=== PATIENT | female | born 1955 | race Caucasian/White ===

== ENCOUNTER 2022-07-25 10:15 | Outpatient (CLI) | payer MEDICARE, SELFPAY | END 2022-07-25 10:16 | disposition home or self-care (01) | LOC: NFLDREF 10:17 | PROVIDERS: PCP Family Medicine; Visit Provider Family Medicine | DX: R30.0 Dysuria (principal) | CPT/HCPCS: 87086 ==

== ENCOUNTER 2023-01-04 08:43 | Outpatient (CLI) | payer MEDICARE, SELFPAY | END 2023-01-04 08:44 | disposition home or self-care (01) | PROVIDERS: PCP Family Medicine; Visit Provider Nurse Practitioner Family | DX: I10 Essential (primary) hypertension (principal); E78.5 Hyperlipidemia, unspecified; E55.9 Vitamin D deficiency, unspecified | CPT/HCPCS: 80053; 80061 ==

== ENCOUNTER 2023-05-29 10:02 | Outpatient (CLI) | payer MEDICARE, SELFPAY ==
--- NOTE | 2023-05-29 10:15 | CRLHL7_ITS ---
For Patients: As a result of the Century Cures Act, medical imaging exams and procedure reports are released immediately into your electronic medical record. You may view this report before your referring provider. If you have questions, please contact your health care provider. BILATERAL SCREENING MAMMOGRAM WITH COMPUTER-AIDED DETECTION AND TOMOSYNTHESIS TECHNIQUE: CC and MLO views were obtained. These mammographic images have been obtained using full-field digital technique. These mammographic images were interpreted with the benefit of computer-aided detection. Breast Tomosynthesis was used in this interpretation. COMPARISON FILM: 10/25/21, 05/19/19, 02/12/18. FINDINGS: There are scattered areas of fibroglandular density IMPRESSION: There is no radiographic evidence for malignancy. ASSESSMENT: BI-RADS Category 1: Negative RECOMMENDATION: Routine screening mammogram in 1 year. A lay language report of this examination will be provided to the patient. Florentin Banuelos M.D. Diagnostic Radiologist [email or web address] NEMO/Dictated by: Florentin Banuelos MD @ 05/29/2023 11:59:00 AM (Electronically Signed)
== END 2023-05-29 10:03 | disposition home or self-care (01) ==
LOC: MAMMO 10:04
PROVIDERS: PCP Family Medicine; Visit Provider Nurse Practitioner Family
DX: Z12.31 Encounter for screening mammogram for malignant neoplasm of breast (principal)
CPT/HCPCS: 77063; 77067

== ENCOUNTER 2024-04-10 10:45 | Outpatient (CLI) | payer MEDICARE, SELFPAY ==
--- OUTSIDE RECORDS SUMMARY | 2024-04-10 10:48 | XMS_ITS | Clinical Summary ---
Author Organization [facility] Address [place], [place] [address] Care Team Providers Care Teacher Physically Impaired Name Role Phone Pcp, No Primary Care Provider Unavailabl Florentin Curry MD Unavailable Unavailab le Allergies Active Allergy Reactions Criticality Noted Date Comments Sulfa (Sulfonamide Antibiotics) Edema,Fever 01/2009 Sulfa (Sulfonamide Antibiotics) Rash 11/2019 Medications Medication Sig Dispensed Refills Start Date End Date Status potassium chloride (Klor-Con M20) 20 mEq Extended-Release tablet Take 1 Tablet (20 mEq) by mouth once daily with a meal. 0 02/01/2022 Active atorvastatin (LIPITOR) 20 mg tablet Take 1 Tablet (20 mg) by mouth once daily. 0 02/01/2022 Active aspirin (ECOTRIN) 81 mg enteric coated tablet Take 1 Tablet (81 mg) by mouth once daily with a meal. 0 02/01/2022 Active amLODIPine (NORVASC) 2.5 mg tablet Take 1 Tablet (2.5 mg) by mouth once daily. 0 02/01/2022 Active chlorthalidone (HYGROTON) 25 mg tablet Take 1 Tablet (25 mg) by mouth once daily. 0 02/01/2022 Active acyclovir (ZOVIRAX) 400 mg tablet Take 400 mg by mouth in the morning and 400 mg in the evening. 12/11/2021 Active Active Problems No known active problems Social History Tobacco Use Types Packs/Day Years Used Date Smoking Tobacco: Former Smokeless Tobacco: Never Alcohol Use Standard Drinks/Week Comments Yes 0 (1 standard drink = 0.6 oz pur e alcohol) occas PHQ-2 Answer Date Recorded PHQ-2 TOTAL SCORE 0 02/01/2022 Social Connections Answer Date Recorded Frequency of Communication with Friends and Fami ly Not on file 06/18/2021 Financial Resource Strain Answer Date R ecorded Difficulty of Paying Living Expenses Not on file 06/18/2021 Difficulty of Paying Living Expenses Not on file 06/18/2021 Sex and Gender Information Value Date Recorded Sex Assigned at Not on file Gender Identity Not on file Sexual Orientation Not on file Obstetrics History Last Filed Vital Signs Vital Sign Reading Time Taken Comments Blood Pressure 150/82 02/01/2022 2:16 PM CDT Pulse 68 02/01/2022 2:16 PM CDT Temperature 37.3 ??C (99.1 ??F) 02/01/2022 2:16 PM CD T Respiratory Rate - - Oxygen Saturation 96% 09/08/2009 2:21 PM CDT Inhaled Oxygen Concentration - - Weight 79.4 kg (175 lb) 02/01/2022 2:16 PM CDT Height 167.6 cm (5' 6) 02/01/2022 2:16 PM CDT Body Mass Index 28.25 02/01/2022 2:16 PM CDT Plan of Treatment Health Maintenance Due Date Last Done Comments Tdap 1966 Hepatitis C screening for ag e 18-79 1973 Tetanus booster 1975 Colonoscopy through age 75 01/18/2000 Lipids for age 45-75 01/18/2000 Zoster (shingles) series for age 50+ (1 of 2) 2005 Mammogram for age 45-75 08/12/2014 08/12/2013 DEXA/DXA scan for age 65+ 01/18/2020 Medicare Wellness for age 65+ 01/18/2020 Pneumococcal series for age 65+ (1 of 1 - PCV) 01/18/2020 BMI (ht and wt on same day) for age 18+ 02/01/2023 02/01/2022 Depression screening for age 12+ 02/01/2023 02/02/20 22 COVID-19 vaccine series ( season) 2024 10/28/2021, 04/18/2021, 09/15/2020, Additional history exists Influenza for age 65+ 02/17/2024 Procedures Procedure Name Priority Date/Time Associated Diagnosis Comments SCAN-MAMMOGRAPHY REPORT 08/12/2013 12:00 AM PSYCHOLOGIST PERSONNEL from Last 3 Months or Most Recently Relevant to Health Maintenance Results * SCAN-MAMMOGRAPHY REPORT (08/12/2013 12:00 AM PSYCHOLOGIST PERSONNEL) Anatomical Region Laterality Modality Other Narrative 08/29/2013 7:28 AM CDT Procedure Note Scanner - 08/12/2013 12:00 AM CST Scanner OTHER from Last 3 Months or Most Recently Relevant to Health Maintenance Care Teams Teacher Physically Impaired Relationship Specialty Start Date End Date Pcp, No . PCP - General 03/23/20 Florentin Oh MD . 03/23/20
== END 2024-04-10 10:46 | disposition home or self-care (01) ==
PROVIDERS: PCP Nurse Practitioner Family; Visit Provider Nurse Practitioner Family
DX: Z00.00 Encounter for general adult medical examination without abnormal findings (principal); E78.5 Hyperlipidemia, unspecified; I10 Essential (primary) hypertension
CPT/HCPCS: 80053; 80061

== ENCOUNTER 2024-09-04 14:30 | Outpatient (CLI) | payer MEDICARE, SELFPAY ==
--- NOTE | 2024-09-04 14:40 | CRLHL7_ITS ---
For Patients: As a result of the Century Cures Act, medical imaging exams and procedure reports are released immediately into your electronic medical record. You may view this report before your referring provider. If you have questions, please contact your health care provider. BILATERAL SCREENING MAMMOGRAM WITH COMPUTER-AIDED DETECTION AND TOMOSYNTHESIS TECHNIQUE: CC and MLO views were obtained. These mammographic images have been obtained using full-field digital technique. These mammographic images were interpreted with the benefit of computer-aided detection. Breast Tomosynthesis was used in this interpretation. COMPARISON FILM: 05/29/23, 10/25/21, 05/19/19. FINDINGS: There are scattered areas of fibroglandular density. IMPRESSION: There is no radiographic evidence for malignancy. ASSESSMENT: BI-RADS Category 1: Negative RECOMMENDATION: Routine screening mammogram in 1 year. A lay language report of this examination will be provided to the patient. Florentin Banuelos M.D. Diagnostic Radiologist [email or web address] SP/Dictated by: Florentin Banuelos MD @ 09/05/2024 12:43:00 PM (Electronically Signed)
== END 2024-09-04 14:31 | disposition home or self-care (01) ==
LOC: MAMMO 14:31
PROVIDERS: PCP Nurse Practitioner Family; Visit Provider Nurse Practitioner Family
DX: Z12.31 Encounter for screening mammogram for malignant neoplasm of breast (principal)
CPT/HCPCS: 77063; 77067

== ENCOUNTER 2025-04-22 13:05 | Outpatient (CLI) | payer MEDICARE, SELFPAY | END 2025-04-22 13:06 | disposition home or self-care (01) | PROVIDERS: PCP Nurse Practitioner Family; Visit Provider Nurse Practitioner Family | DX: I10 Essential (primary) hypertension (principal); E78.2 Mixed hyperlipidemia | CPT/HCPCS: 80053; 80061 ==